=== PATIENT | male | born 1955 | race Caucasian/White ===

== ENCOUNTER → 2018-08-18 12:47 | Outpatient (CLI) | payer OTHER, SELFPAY ==
--- NOTE | 2018-08-18 | DI.CT.S_ITS ---
PROCEDURE: CT KIDNEY URETER BLADDER (KUB) INDICATIONS: Left and right lower quadrant abdominal pain TECHNIQUE: Noncontrast 5 mm thick sections acquired from the diaphragms to the symphysis. 5 mm thick coronal and sagittal reformats were then performed. For radiation dose reduction, the following was used: automated exposure control, adjustment of mA and/or kV according to patient size. COMPARISON: [facility], , ABDOMEN LIMITED, 12/30/2011, 10:52. FINDINGS: Image quality: Excellent. Lung bases: Lung bases are clear. Heart size is normal. Urinary system: Both kidneys are normal in size. No kidney stones. No hydronephrosis or perinephric fat stranding. Both ureters appear non-dilated throughout their expected courses. Bladder wall thickness is normal; no calcified bladder stones. Other solid organs: Liver is normal in size. Gallbladder is partially collapsed at the time of this study. Pancreas is normal in contours. Spleen is normal in size. No adrenal nodules. Peritoneum and bowel: In this patient with this given history, scrutiny is given to the sigmoid colon. No findings of diverticulitis are seen. Unenhanced bowel loops demonstrate normal wall thickness and caliber. No free fluid or air. Nodes and vessels: No retroperitoneal or mesenteric adenopathy by size criteria. Aorta and inferior vena cava are normal in caliber. Atherosclerotic calcification is noted. Abdominal wall: No ventral hernias. Pelvis: No free pelvic fluid. No inguinal hernias or adenopathy. Bones: No suspicious bony lesions. No vertebral body compression fractures. Moderate to severe loss of disc height is seen at the L4-L5 and L5-S1 levels. Grade 1 antral is seen at L5-S1, with associated bilateral pars defects. IMPRESSION: Negative for diverticulitis. No findings of kidney stones or obstructive uropathy can be seen. Incidental note is made of: Prominent lower lumbar spine degenerative changes are seen. Atherosclerotic calcification Dictated by: Luiz Good M.D. on 08/18/2018 at 12:03 Approved by: Luiz Good M.D. on 08/18/2018 at 12:06
== END ==
PROVIDERS: Family Provider Family Medicine; PCP Family Medicine; Visit Provider Specialist
DX: R10.32 Left lower quadrant pain (principal); R10.31 Right lower quadrant pain; I70.0 Atherosclerosis of aorta; M51.36 Other intervertebral disc degeneration, lumbar region; M51.37 Other intervertebral disc degeneration, lumbosacral region
CPT/HCPCS: 74176

== ENCOUNTER → 2021-05-04 15:58 | Outpatient (CLI) | payer MEDICARE, OTHER, SELFPAY ==
[2021-05-05 19:38] LABS: BUN Creatinine Ratio 19.7 (6-22); Blood Urea Nitrogen 14 mg/dL (9-20); Calcium 9.1 mg/dL (8.4-10.2); Carbon Dioxide 26 mmol/L (22-32); Chloride 97 mmol/L (98-107); Estimated Glomerular Filt Rate > 60.0 mL/min (>60); HEMOLYSIS < 15 (0-50); Potassium 4.8 mmol/L (3.4-5.1); Sodium 139 mmol/L (137-145); Uric Acid 4.8 mg/dL (3.5-8.5)
[2021-05-05 19:44] LABS: Glucose 47 mg/dL (80-110)
== END ==
PROVIDERS: Family Provider Family Medicine; PCP Physician Assistant; Visit Provider Physician Assistant
DX: I10 Essential (primary) hypertension (principal); M10.9 Gout, unspecified
CPT/HCPCS: 80048; 84550